=== PATIENT | female | born 1975 | race Two or more races ===

== ENCOUNTER 2025-09-18 10:44 | Emergency (ER) | payer OTHER, SELFPAY ==
[2025-09-18 10:45] VITALS: BMI 28.1
[2025-09-18 10:55] VITALS: BP 161/81; PULSE 55; RESP 18; TEMP 36.5; O2SAT 97
--- NOTE | 2025-09-18 11:41 | EDNOTE_ITS ---
<Statement entered by Reanna Rodgers MD - 09/18/25 17:37> As co-signing physician, I was present and available for consult prn. I concur with the plan and care as documented by the midlevel provider. ED GI Bleed RME/HPI General Chief complaint: GI Bleed Stated complaint: BLOOD IN STOOL X3 DAYS; HX CROHN'S Time Seen by Provider: 09/18/25 11:19 Arrival date/time: 09/18/25 10:44 50-year-old female patient with significant history of Crohn's disease, came in for evaluation regarding nausea and diarrhea with mucousy stools sometimes with blood streak. Patient denies any dizziness denies any abdominal pain denies any vomiting. Denies any fever. Patient is currently taking Lialda on a regular basis. Patient called her GI specialist and was advised to go to the emergency room to rule out anemia. Related Data Home Medications ?Medication ?Instructions ?Recorded ?Confirmed folic acid 1 mg tablet 1 mg PO QDAY #0 tabs 6 mesalamine 1.2 gram tablet,delayed 1.2 gm PO 4 X DAILY CHRON'S 07/10/16 release (Lialda) DISEASE ##0 Previous Rx's ?Medication ?Instructions ?Recorded Hydrocodone/Acetaminophen * (NORCO 1 tab PO Q4H PRN pa in #30 tabs 07/13/16 5/325 *) prednisone 10 mg tablet See Taper PO QDAY #32 tabs 1 11/19/24 Allergies Allergy/AdvReac Type Severity Reaction Status Date / Time NKA* Allergy Uncoded 09/18/25 10:47 Review of Systems Review of Systems Narrative Review of Systems: Review of system reviewed and within normal limits except mentioned in HPI ED Exam Narrative Physical exam: VITAL SIGNS: Reviewed. GENERAL APPEARANCE: Alert and interactive, follows commands, no acute distress, HEAD AND FACE: Non-traumatic. ENT: PERRL, pink conjunctivitis, eyelid no trauma, Mucous membrane moist. NECK: Supple, nontender, no nuchal rigidity. CHEST: No tenderness, no crepitus, no paradoxical movement, no retractions. LUNGS: Clear, well ventilated, symmetric, no rales, no wheezing, no ronchi, no stridor, good breath sounds bilaterally. HEART: Regular rate, regular rhythm, no murmur, no gallops. ABDOMEN: Soft, positive bowel sounds, nondistended, no guarding, nontender, no rebound, no masses, RECTAL: Deferred. GENITAL: Deferred. NEUROLOGICAL: Gross motor function intact sensory function intact, Appropriate for age. MUSCULOSKELETAL: low back nontender, full range of motion. EXTREMITIES: Nontender, full range of motion. SKIN: Color pink, dry, no rash, no lacerations, no abrasions, no contusions. LYMPHATICS: Deferred. Course Quality Measures none Orders Category Date Time Status CBC [CBC] Stat Lab 09/18/25 11:59 Completed CMP [Comprehensive Metabolic Panel] Stat Lab 09/18/25 11:59 Completed PTT [Partial Thromboplastin Time] Stat Lab 09/18/25 11:59 Completed Famotidine [Pepcid] Med 09/18/25 11:41 Discontinued 40 mg PO X1 ONE Ondansetron Odt [Zofran Odt] Med 09/18/25 11:41 Discontinued 4 mg PO X1 ONE Vital Signs Vital signs: Vital Signs Temperature 97.7 F 09/18/25 10:55 Pulse Rate 55 L 09/18/25 10:55 Respiratory Rate 18 09/18/25 10:55 Blood Pressure 161/81 H 09/18/25 10:55 Pulse Oximetry (%) 97 09/18/25 10:55 Oxygen Delivery Method Room Air 09/18/25 10:55 GI Bleed MDM Narrative MDM Narrative:: 50-year-old female patient with significant history of Crohn's disease, came in for evaluation regarding nausea and diarrhea with mucousy stools sometimes with blood streak. Patient denies any dizziness denies any abdominal pain denies any vomiting. Denies any fever. Patient is currently taking Lialda on a regular basis. Patient called her GI specialist and was advised to go to the emergency room to rule out anemia. Patient's laboratory workup all came back unremarkable. No anemia no electrolyte abnormalities. Plan of care discussed with the patient who requested for prednisone taper for her Crohn's disease flareup. Patient was also advised to follow-up with GI specialist next week. Stable for discharge home Patient data External records reviewed:: None Clinical information provided by:: patient Social determinants that could affect healthcare access:: none Patient has the following chronic illnesses:: History of Crohn's disease How is presenting disease/condition affected by chronic disease/condition?: exacerbated by Evaluation data The following diagnostics were reviewed and interpreted by me:: lab results Lab and/or radiology exams considered but not ordered:: None Interpretation Summary: Stable Medications / Prescriptions Medications or Prescriptions considered but not ordered:: None Medication administrations:: Medication Administration History Discontinued Medications Famotidine (Famotidine 20 Mg Tablet) 40 mg PO X1 ONE Stop: 09/18/25 11:42 Last Admin: 09/18/25 12:03 Dose: 40 mg Documented By: Ondansetron HCl (Ondansetron Odt 4 Mg Tabrap) 4 mg PO X1 ONE; Protocol Stop: 09/18/25 11:42 Last Admin: 09/18/25 12:03 Dose: 4 mg Documented By: Arsenio Stanley Consultations Consultation(s) initiated? (list below): No Diagnosis GI bleed differential diagnosis: Upper gastrointestinal hemorrhage and Lower gastrointestinal hemorrhage Most likely diagnosis given after review of the tests above:: Crohn's flareup Admission Indicated Admission indicated?: not indicated Admission Request Was there a request for admission?: No Disposition Plan Disposition Plan: Discharge Discharge Attestation Discharge Attestation: The patient and all family members were given an opportunity to ask questions and understood the discharge instructions. Discharge instructions specifically effects, indications for sooner follow up or return to the emergency department, and the expected course of current diagnosis. Patient condition: Stable Discharge Plan Plan Patient Disposition: HOME (Self Care) Discharge Disposition comment: Stable Prescriptions/Referrals Prescriptions/Med Rec: New prednisone 10 mg tablet See Taper PO QDAY Qty: 32 0RF Taper: Prednisone Taper 40 mg DAILY for 3 Days and 0 Hour 30 mg DAILY for 3 Days and 0 Hour 20 mg DAILY for 3 Days and 0 Hour 10 mg DAILY for 3 Days and 0 Hour 5 mg DAILY for 3 Days and 0 Hour Rx Instructions: see above No Action folic acid 1 MG tablet 1 mg PO QDAY Qty: 0 mesalamine [Lialda] 1.2 GM tablet,delayed release (DR/EC) 1.2 gm PO 4 X DAILY Qty: 0 Hydrocodone/Acetaminophen * (NORCO 5/325 *) 1 TAB tablet 1 tab PO Q4H PRN (Reason: pain) Qty: 30 0RF Referrals: Roshni Russ MD [Primary Care Provider] - In 1 week Problem List Clinical Impression: Crohn's disease Patient/Caregiver Discharge Instructions Education Materials: ED Crohn's Disease Additional Instructions: Thank you for the opportunity for serving you today. You are stable for discharged . You are advised to: Follow-up with your GI specialist in 1 to 2 days Return to ED for worsening of symptoms Increase oral fluids Take medication as prescribed Print Language: Citizen Of [place] Stand Alone Forms: Mitzi Award Info., Work/School Release, Patient Portal Info Letter PA/CADENCE Supervising Physician PA/CADENCE Supervising Physician: MD Ana Maria
[2025-09-18] MEDS: ONDANSETRON ODT 4 MG TABRAP PO (12:03)
[2025-09-18] MEDS: FAMOTIDINE 20 MG TABLET 40 MG PO (12:03)
[2025-09-18 12:09] LABS: Basophils # (Auto) 0.0 Thou/mm3 (0.0-0.2); Basophils % (Auto) 0 % (0-2.5); Eosinophils # (Auto) 0.0 Thou/mm3 (0.0-0.5); Eosinophils % (Auto) 1 % (0-10); Hematocrit 38.5 % (36.0-46.0); Hemoglobin 12.7 g/dL (12.0-16.0); Immature Granulocytes Auto 0.01 Thou/mm3 (0.00-0.00); Lymphocytes # (Auto) 1.3 Thou/mm3 (1.0-4.8); Lymphocytes % (Auto) 27 % (10-50); Mean Corpuscular HGB Conc 33.0 g/dl (31.0-37.0); Mean Corpuscular Hemoglobin 28.7 pg (25.0-35.0); Mean Corpuscular Volume 87 fL (80-100); Monocytes # (Auto) 0.2 Thou/mm3 (0.0-0.8); Monocytes % (Auto) 4 % (0-12); Neutrophils # (Auto) 3.3 Thou/mm3 (1.8-7.7); Neutrophils % (Auto) 68 % (37-80); Nucleated Red Blood Cell # 0.00 Thou/mm3 (0.00-0.00); Nucleated Red Blood Cell % 0 /100 WBC (0); Platelet Count 194 Thou/mm3 (140-440); RDW Standard Deviation 39.6 fL (36.4-46.3); Red Blood Count 4.43 Miln/mm3 (4.00-5.20); White Blood Count 4.8 Thou/mm3 (3.6-11.0)
[2025-09-18 12:30] LABS: Alanine Aminotransferase 15 U/L (10-49); Albumin, Serum 4.8 gm/dL (3.5-5.0); Albumin/Globulin Ratio 2.2 (1.2-2.2); Alkaline Phosphatase 62 U/L (46-116); Anion Gap 8 (7-16); Aspartate Amino Transferase 13 U/L (0-34); BUN/Creatinine Ratio 19 Ratio (12-20); Bilirubin,Total 1.1 mg/dL (0.3-1.2); Blood Urea Nitrogen 13 mg/dL (9-23); Calcium 9.4 mg/dL (8.3-10.6); Calcium (Corrected) 9.4 mg/dL (8.5-10.1); Carbon Dioxide 27.7 mMol/L (20.0-31.0); Chloride 107 mMol/L (98-107); Creatinine (Component) 0.7 mg/dL (0.6-1.3); Estimated Creatinine Clearance 96.3 mL/min (>60); Globulin 2.2 gm/dL (2.3-3.5); Glucose 122 mg/dL (74-106); Osmolality,Calculated 286 (275-295); Partial Thromboplastin Time 28.5 Seconds (22.0-36.0); Potassium 3.9 mMol/L (3.4-5.1); Sodium 143 mMol/L (136-145); Total Protein 7.0 gm/dL (5.7-8.2); eGFR > 60 See Note
[2025-09-18 13:55] VITALS: BP 137/77; PULSE 54; RESP 17; TEMP 36.7; O2SAT 97
== END 2025-09-18 14:20 | disposition home or self-care (01) ==
PROVIDERS: Nurse Practitioner Family; Emergency Provider Emergency Medicine; PCP Family Medicine; Referring Provider Internal Medicine Gastroenterology
DX: K50.911 Crohn's disease, unspecified, with rectal bleeding (principal)
CPT/HCPCS: 36415; 80053; 85025; 85730; 99282; Q0162; A9270